=== PATIENT | male | born 1960 | race Caucasian/White ===

== ENCOUNTER 2021-01-12 10:37 | Day surgery (SDC) | payer BC ==
[~2021-01-12] VITALS: Ht 170.2 cm; Wt 113.0 kg
[2021-01-12] VITALS (7 sets, daily range): BP systolic 123–133; BP diastolic 67–81; PULSE 59–88; TEMP 97.6–98.1
[~2021-01-12 10:37] MED LIST: ALLOPURINOL100 MG PO; LISINOPRIL10 MG PO
[2021-01-12] MEDS ORDERED: PRINIVIL10 MG PO (11:33)
[2021-01-12] MEDS ORDERED: ZYLOPRIM 300MG300 MG PO (11:34)
[2021-01-12] MEDS ORDERED: LEXAPRO20 MG PO (11:34)
[2021-01-12] MEDS ORDERED: ZOCOR 40MG40 MG PO (11:34)
[2021-01-12] MEDS ORDERED: FLOMAX 0.40.4 MG/CAP PO (11:36)
[2021-01-12] MEDS ORDERED: MOTRIN 600600 MG/TAB PO (14:50)
[2021-01-12] MEDS ORDERED: NORCO 325 MG-51 TAB PO (14:52)
[2021-01-12] MEDS ORDERED: COLACE 100100 MG/CAP PO (14:53)
--- NOTE | 2021-01-12 15:28 | NUR ---
Pt returns to [facility] from PACU, alert and oriented x3, very sweaty, scd's removed and blankets turned down, cool washcloth to forehead. Pt denies nausea, complains of throbbing pain to abdomen was treated with Dilaudid in PACU and O2/2L/NC to keeps sats >94%. at bedside. 5 sites to abdomen with exofen, clean and dry. Will continue to monitor.
--- NOTE | 2021-01-12 15:40 | NUR ---
No orders to pain medications, Dr. Hauser notified and [facility] for Morphine 2 mg IV up to 4 mg Q2H PRN and [place] 5/355 mg 1-2 tabs Q4H PRN received. Pt provided with water and is tolerating well.
--- NOTE | 2021-01-12 16:05 | NUR ---
Pt tolerates a few bites of cracker well and denies nausea. Given a pain pill per orders and has tolerated water well. VSS. Call light in reach.
--- NOTE | 2021-01-12 16:25 | NUR ---
Pt reports pain improving from a 5 to a 3. O2/NC removed and will continue to monitor. VSS. Call light in reach.
--- NOTE | 2021-01-12 16:35 | NUR ---
Pt now able to rest and O2 sats 88% on room air, O2/1L/NC applied while pt rests. Call light in reach. Will continue to monitor.
--- NOTE | 2021-01-12 17:05 | NUR ---
While pt resting O2 sats 94% on O2/1L/NC in place, removed at this time and pt reports he is feeling better.
--- NOTE | 2021-01-12 17:25 | NUR ---
Pt up and ambulates to the bathroom slow but steady. Pain manageable now. Pt voids without difficulty and helps him get dressed, he is wanting to go home. O2 sat 94 on room air. Discharge instructions provided to pt and his and pt taken out to private car at 1745.
== END 2021-01-12 17:45 | disposition home or self-care (01) ==
LOC: SDCO 10:37
DX: K80.10 Calculus of gallbladder with chronic cholecystitis without obstruction (principal); I10 Essential (primary) hypertension; E78.5 Hyperlipidemia, unspecified; G47.33 Obstructive sleep apnea (adult) (pediatric); M19.90 Unspecified osteoarthritis, unspecified site; M10.9 Gout, unspecified; F32.9 Major depressive disorder, single episode, unspecified; F41.9 Anxiety disorder, unspecified; Z79.899 Other long term (current) drug therapy; Z99.89 Dependence on other enabling machines and devices; Z80.0 Family history of malignant neoplasm of digestive organs; Z83.3 Family history of diabetes mellitus
CPT/HCPCS: J0690; J1100; J1170; J1885; J2370; J2405; J2704; J3010; J7120